=== PATIENT | female | born 1995 | race Caucasian/White ===

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

== ENCOUNTER 2017-04-07 13:09 | Emergency (ER) | payer MEDICAID ==
[~2017-04-07] VITALS: Ht 160 cm; Wt 46.0 kg
[2017-04-07] MEDS ORDERED: METOCLOPRAMIDE HCL 10MG/2ML VIAL IM ONE (17:45)
[2017-04-07] MEDS ORDERED: KETOROLAC 30MG/ML VIAL IM ONE (17:45)
[2017-04-07] MEDS ORDERED: METOCLOPRAMIDE HCL 10MG/2ML VIAL IV ONE (18:15)
[2017-04-07] MEDS ORDERED: KETOROLAC 30MG/ML VIAL IV ONE (18:15)
[2017-04-07 18:35] VITALS: BP 93/49
== END 2017-04-07 18:53 | disposition home or self-care (01) ==
LOC: ER 14:15
DX: J01.90 Acute sinusitis, unspecified (principal); B96.89 Other specified bacterial agents as the cause of diseases classified elsewhere; R11.10 Vomiting, unspecified
CPT/HCPCS: 81025; 96372; 99284; J1885; J2765

== ENCOUNTER 2024-03-26 17:17 | Emergency (ER) | payer MEDICAID, OTHER ==
[~2024-03-26] VITALS: Ht 160 cm; Wt 54.0 kg
[2024-03-26 17:23] VITALS: O2SAT 98
[2024-03-26 17:27] VITALS: BP 109/78; PULSE 90; RESP 16; TEMP 98.2; O2SAT 98
== END 2024-03-26 19:03 | disposition left against medical advice (07) ==
LOC: ER 17:17
DX: R11.2 Nausea with vomiting, unspecified (principal); R19.7 Diarrhea, unspecified; Z53.21 Procedure and treatment not carried out due to patient leaving prior to being seen by health care provider